=== PATIENT | male | born 1955 | race Caucasian/White ===

== ENCOUNTER 2021-03-07 06:46 | Day surgery (SDC) | payer MEDICARE, BC ==
[~2021-03-07] VITALS: Ht 170.2 cm; Wt 63.5 kg
[2021-03-07] MEDS ORDERED: fentaNYL CITRATE/PF 100 MCG/2 ML AMP ONE (07:49)
[2021-03-07] MEDS ORDERED: SIMETHICONE 40 MG/0.6 ML ML ONE (07:49)
[2021-03-07] MEDS ORDERED: MIDAZOLAM HCL 5 MG/5 ML VIAL ONE (07:49)
[2021-03-07 11:35] VITALS: BP_SYST 143
== END 2021-03-07 09:40 | disposition home or self-care (01) ==
LOC: SDS 06:46
PROVIDERS: ATTEND Internal Medicine
DX: Z12.11 Encounter for screening for malignant neoplasm of colon (principal); D12.2 Benign neoplasm of ascending colon; D12.3 Benign neoplasm of transverse colon; K64.4 Residual hemorrhoidal skin tags; E78.5 Hyperlipidemia, unspecified; K57.30 Diverticulosis of large intestine without perforation or abscess without bleeding; Z79.899 Other long term (current) drug therapy
CPT/HCPCS: 45380; 45385; 88305; 99152; G0378; J2250; J3010; J7030